=== PATIENT | female | born 1975 | race Caucasian/White ===

== ENCOUNTER 2024-02-19 05:13 | Inpatient (IN) | payer OTHER, SELFPAY ==
[2024-02-19] VITALS (9 sets, daily range): BP systolic 113–151; BP diastolic 69–99; BMI 34.6
--- NOTE | 2024-02-19 01:38 | ED.GENMED ---
History of Present Illness
General
Chief Complaint: Breathing Problem
Source: patient and ambulance crew
Time Seen by Provider: 02/19/24 01:31
History of Present Illness
History of Present Illness:
48-year-old female brought to the emergency room by ambulance for shortness of breath. Patient began having extreme shortness of breath over the past few hours. She has been having wheezing for some time that has not been improving with her
inhaler. Patient has a history of smoking but quit 1 year ago. She does not have a patient financial coordinator. No known fever. Patient received 2 DuoNeb's, 10 mg of Decadron en route by paramedics. No history of intubations.
Past History
Past History
ED Past Medical History: Asthma, Fibromyalgia, Psychiatric (Bipolar disorder, anxiety, depression ) and Other (Migraine headaches, neck pain, back pain )
ED Past Surgical History: Gynecological (Tubal ligation )
Social History
Tobacco: Smoker
Alcohol: None
Personal: Single
Living: alone
Phy Exam
Physical Exam
Physical Exam:
General: Awake, Alert, Oriented X3. Moderate respiratory distress
Vitals: Tachycardic, tachypneic
Head: Atraumatic
Eyes: Pupils equal, EOMI
Throat: Airway intact, no exudates
Neck: Trachea midline
Lungs: Diffuse expiratory wheezing
Heart: Tachycardic, regular rate, no murmurs
Abd: Soft, Nontender, No pulsatile mass
Neuro: Nonfocal
Skin: Warm, dry, no rash
Extremities: pulses equal b/l, no edema
Scores
Heart Failure Risk
Heart Failure Risk Score: Not Applicable
Course
Orders/Labs/Results
Orders:
Orders
02/19/24 01:36
Cardiac Monitoring- Treatment ONCE
0.9% Sodium Chloride 1000 ml [Nss] 1,000 ml IV BOLUS
Albuterol Sulfate [Ventolin Nebules] 7.5 mg INH R NOW STA
Magnesium Sulfate 2 Gram/50 ml [Magnesium Sulfate] 2 gram in 50 ml IV NOW
CR Chest Portable - 1 View Urgent
Comment:
Reason For Exam: sob
Reason Study Needs to be Portable: Patient Unstable
02/19/24 01:45
Basic Metabolic Panel Urgent
Complete Blood Count/With Diff Urgent
02/19/24 01:46
Terbutaline [Brethine] 250 mcg SC NOW STA
Abnormal Lab Results
02/19/24
01:45
WBC 15.0 H 10^3/uL
(4.8-10.8)
MCH 32.9 H pg
(27.0-31.0)
Abs Immat Gran (auto) 0.1 H 10^3/uL
(0-0.05)
Absolute Neuts (auto) 7.7 H 10^3/uL
(1.4-6.5)
Absolute Lymphs (auto) 5.3 H 10^3/uL
(1.2-3.4)
Absolute Monos (auto) 1.0 H 10^3/uL
(0.1-0.6)
Absolute Eos (auto) 0.8 H 10^3/uL
(0-0.7)
Immature Gran % 0.8 H %
(0-0.5)
BUN 20 H mg/dl
(7-17)
Glucose 135 H mg/dl
(70-99)
02/19/24 01:45
02/19/24 01:45
Vital Signs
Initial and Last Documented VS:
Initial Vital Signs
Temp Pulse Resp BP Pulse Ox
98.1 F 129 40 139/99 98
02/19/24 01:33 02/19/24 01:33 02/19/24 01:33 02/19/24 01:33 02/19/24 01:33
Last Documented Vital Signs
Temp Pulse Resp BP Pulse Ox
98.1 F 119 23 130/78 95
02/19/24 01:33 02/19/24 02:15 02/19/24 02:15 02/19/24 02:00 02/19/24 02:15
MDM/Problems Addressed
Differential Diagnosis Includes:
asthma exacerbtion, ptx, pneumonia, chf
MDM/Problems Addressed:
Patient presents with significant increased work of breathing, wheezing and decreased aeration. In addition to nebs given in the prehospital setting patient was treated with an hour-long albuterol treatment, subcu terbutaline and 2 g of magnesium.
Patient did begin to feel significant improvement. She had already received 10 mg of Decadron by paramedics. Though much better she continues to have expiratory wheezing on repeat evaluation.
Acute Exacerbation and/or Progression of Chronic Illness: Asthma
*Radiology
Radiology exam reviewed: preliminary read by ED provider (No acute abnormality by my personal review)
*Pulse Oximetry
Patient hypoxic: no
*Matchbook Maker Interpretation
Rate: tachycardiac
Rhythm: sinus tachycardia
*Critical Care Note
Total Time (30-74mins, 75-104mins- exclusive of procedures): 35 min
ED Attending Note
-
Portions of this chart may have been created with voice recognition software.� Occasional wrong word or��sound alike� substitutions may have occurred due to the inherent limitations of voice recognition software.
Discharge Plan
Departure
Patient Disposition: Admit
Date of Disposition: 02/19/24
Time of Disposition: 02:40
Admit to: Med/Surg
Presentation/result/management discussed w/ accepting MD/DO: Hospitalist
Discharge Problem:
Asthma exacerbation
Prescriptions:
No Action
Manter Carbonate
900 mg PO DAILY
Paxil Cr
50 mg PO DAILY
Klonopin
3 mg PO HS
Advil
PO DAILY
Benadryl
50 mg PO DAILY
Albuterol
2 puff inhalation BID
clonazepam 1 MG tablet
1 mg PO TID Qty: 42 0RF
quetiapine 100 MG tablet
100 mg PO HS Qty: 14 0RF
Referrals:
NONE,* [Family Provider] -
Interventions
Interventions:
*Risk Screen - Suicide Last Done: 02/19/24 02:03
*General Assessment Last Done: 02/19/24 02:02
*Neglect/Abuse Screening Last Done: 02/19/24 01:40
ED- Fall Risk Assessment Last Done: 02/19/24 02:05
*ED COVID-19 Vaccine History Last Done: 02/19/24 02:02
ED- Cardiac Assessment Last Done: 02/19/24 02:04
ED- Pulmonary Assessment Last Done: 02/19/24 02:05
Discharge Date and Time
Print Language: PERSIAN
[2024-02-19] MEDS: VENTOLIN NEBULES 7.5 MG INH (01:45)
[2024-02-19] MEDS: MAGNESIUM SULFATE 50 IV (01:46)
[2024-02-19 01:49] LABS: % Basophils 0.9 % (0-2); % Eosinophils 5.1 % (0-6); % Immature Granulocytes 0.8 % (0-0.5); % Monocytes 6.7 % (1.7-9.3); % Neutrophils 51.5 % (42.2-75.2); Absolute Basophils 0.1 10^3/uL (0-0.2); Absolute Eosinophils 0.8 10^3/uL (0-0.7); Absolute Immature Granulocytes 0.1 10^3/uL (0-0.05); Absolute Lymphocytes 5.3 10^3/uL (1.2-3.4); Absolute Neutrophils 7.7 10^3/uL (1.4-6.5); Hematocrit 42.1 % (37.0-47.0); Hemoglobin 15.1 g/dL (12.0-16.0); Mean Corp Hgb Conc. 35.9 g/dL (33.0-37.0); Mean Corpuscular Hgb 32.9 pg (27.0-31.0); Mean Corpuscular Volume 91.7 fL (81.0-99.0); Mean Platelet Volume 9.7 fL (7.4-10.4); Nucleated Red Blood Cells % 0 %; Platelet Count 340 10^3/uL (130-400); Red Blood Cell Count 4.59 10^6/uL (4.20-5.40); Red Cell Dist. Width 12.9 % (11.5-14.5)
[2024-02-19] MEDS: NSS 1000 IV (01:53)
[2024-02-19] MEDS: BRETHINE 250 MCG SC (01:57)
[2024-02-19 02:03] LABS: Blood Urea Nitrogen 20 mg/dl (7-17); Calcium 9.9 mg/dl (8.4-10.2); Carbon Dioxide 25 mmol/L (22-30); Chloride 102 mmol/L (98-107); Glucose 135 mg/dl (70-99); Sodium 140 mmol/L (135-145); eGFR > 60.00
--- NOTE | 2024-02-19 03:38 | HPS.HSE ---
Family Physician
-
Family Physician: NINFA Grande
Chief Complaint
-
SOB
History of Present Illness
Patient is a 48y F with PMH significant for fibromyalgia, asthma and bipolar disorder who presents to ED complaining of SOB. Patient states that she initially developed cough, chest tightness and SOB on Tuesday of this week. She has been using
her rescue inhaler regularly without significant improvement in her symptoms. She has a nebulizer machine at home but is out of albuterol vials. Patient denies any fevers / chills, N/V/D or other associated complaints.
Patient notes that she has had intermittent episodes over the past week - typically lasting about 90 minutes or so. She would have paroxysms of cough and felt improved after successfully expectorating whitish mucus.
This evening, patient developed very severe dyspnea and central chest tightness. She coughed but could not produce any sputum and her symptoms did not improve.
EMS was called and patient was brought to the ED for further evaluation and treatment.
At the time of my examination, patient states that she feels significantly improved from admission. She has received nebulizer therapy and IV magnesium here in the ED.
Patient notes that she had fairly significant / prolonged issues with asthma last month as well - but these symptoms did eventually resolve.
She does not take any daily asthma medications or any maintenance inhalers.
She is a prior smoker - having quit in 2021.
Medical History
Past Medical History
Past Medical History: Reports Other
Additional Past Medical History:
Fibromyalgia
Asthma
Bipolar Disorder
ADHD
Lee-Danlos
Past Surgical History: Reports Other
Additional Past Surgical History:
Hysterectomy
Social History
Tobacco: Former Smoker (Quit smoking in 2021. Approx 20 pack years total use.)
Alcohol: Occasional
Family History
Family History: Other (Uncle: Eosinophilic Asthma)
Allergies / Home Medications
Allergies reflects when Allergies were last updated in [employer].
Home Medications with original date entered in [employer]
Allergy/Medication List:
Allergies
Allergy/AdvReac Type Severity Reaction Status Date / Time
divalproex sodium Allergy Unknown Verified 02/19/24 02:26
erythromycin base Allergy Unknown Verified 02/19/24 02:26
lamotrigine Allergy Unknown Verified 02/19/24 02:26
verapamil Allergy Hives Verified 02/19/24 02:26
pollens Allergy sneezing,congestion,respiratory Uncoded 02/19/24 02:26
distress
Home Medications
Advil PO DAILY 10/04/08
Albuterol 2 puff inhalation BID 10/04/08
Benadryl 50 mg PO DAILY 10/04/08
Klonopin 3 mg PO HS 10/04/08
clonazepam 1 mg tablet 1 mg PO TID #42 tabs 05/31/10
Lamictal 1 tab PO DAILY 02/19/24
Seroquel 25 mg PO BID 02/19/24
Wellbutrin 1 tab PO DAILY 02/19/24
duloxetine 60 mg capsule,delayed release (Cymbalta) 120 mg PO DAILY 02/19/24
levocetirizine 5 mg tablet (Xyzal) 5 mg PO DAILY 02/19/24
quetiapine 400 mg tablet,extended release 24 hr (Seroquel XR) 400 mg PO HS 02/19/24
Review of Systems
-
History Source: Patient
A 12 point ROS was completed and negative except as noted: Yes
Constitutional: Reports Fatigue; Denies Fever or Chills
EENT: Denies Sore Throat
Respiratory: Reports Cough and Trouble Breathing; Denies Hemoptysis
Cardiac: Reports Chest Pain; Denies Diaphoresis, Palpitations or Syncope
Abdomen/GI: Denies Abdominal Pain, Nausea, Vomiting or Diarrhea
: Denies Dysuria or Flank Pain
Musculoskeletal: Denies Joint Pain or Edema
Neurological: Denies Dizzy or Headache
Psych: Denies Depression or Anxiety
Physical Exam
Vital Signs
Vital Signs
Temp Pulse Resp BP Pulse Ox
98.1 F 119 23 130/78 95
02/19/24 01:33 02/19/24 02:15 02/19/24 02:15 02/19/24 02:00 02/19/24 02:15
Physical Exam
General: Other (48y F in no acute distress.)
HEENT: Moist mucous membranes and PERRLA
Respiratory: Other (Diffuse inspiratory and expiratory wheezing. No rales / rhonchi.)
Cardiac: S1/S2 and Tachycardia; No Murmur
GI: Soft, Non Tender, Non Distended and Normal Bowel Sounds
Musculoskeletal: No Clubbing, No Cyanosis and No Edema
Neuro: AO x 3 and Nonfocal/grossly intact
Laboratory Results
-
02/19/24 01:45
02/19/24 01:45
Impression/Plan
-
A/P: Patient is a 48y F with PMH significant for asthma and fibromyalgia who presents to ED complaining of cough and SOB.
Asthma with Acute Exacerbation
- Admit for further evaluation and treatment.
- Continue IV steroids, nebs, O2 support, etc.
- Pulmonary evaluation
- Uncontrolled symptoms with two significant exacerbations in the past 2 months.
- Suspect that patient will benefit from maintenance medication / inhaler regimen at discharge.
- Follow for continued clinical improvement.
Bipolar Disorder
ADHD
Fibromyalgia
Insomnia
- Stable. Continue current home medication regimen.
- Some med doses need to be clarified / reconciled before they can be ordered here (Lamictal, Wellbutrin, etc).
Obesity due to excess calories
- Affects all aspects of care.
- Encourage healthy diet and increased activity with goal of weight loss.
DVT Prophylaxis: Lovenox
Code Status: Full
[2024-02-19] MEDS: DUONEB 3 ML INH ×5 (04:05→18:59)
[2024-02-19] MEDS: VALIUM INJECTION 2 MG IV (04:46)
--- NOTE | 2024-02-19 06:20 | PTCARENOTE ---
Patient arrived from the ED via stretcher. Patient pivoted onto bed. Very SOB with exertion. AAOx3, VSS. O2 sat 93% on 2L NC. Bedside commode placed next to bed due to SOB. Patient oriented to the room. Educated on medications and plan of care. Call
bernardo is within reach.
[2024-02-19 07:47] LABS: Hematocrit 36.6 % (37.0-47.0); Hemoglobin 13.4 g/dL (12.0-16.0); Mean Corp Hgb Conc. 36.6 g/dL (33.0-37.0); Mean Corpuscular Hgb 33.4 pg (27.0-31.0); Mean Corpuscular Volume 91.3 fL (81.0-99.0); Platelet Count 295 10^3/uL (130-400); Red Blood Cell Count 4.01 10^6/uL (4.20-5.40); Red Cell Dist. Width 12.9 % (11.5-14.5); White Blood Cell Count 10.6 10^3/uL (4.8-10.8)
[2024-02-19 08:03] LABS: Blood Urea Nitrogen 15 mg/dl (7-17); Calcium 9.1 mg/dl (8.4-10.2); Carbon Dioxide 20 mmol/L (22-30); Chloride 105 mmol/L (98-107); Estimated Creatinine Clearance 80 ml/min; Glucose 160 mg/dl (70-99); Potassium 3.9 mmol/L (3.5-5.1); Sodium 137 mmol/L (135-145); eGFR > 60.00
[2024-02-19] MEDS: SEROQUEL 25 MG PO ×2 (08:20→19:44)
[2024-02-19] MEDS: CYMBALTA DELAYED RELEASE 120 MG PO (08:20)
[2024-02-19] MEDS: KLONOPIN 1 MG PO ×3 (08:20→21:04)
[2024-02-19] MEDS: MUCINEX 1200 MG PO ×2 (08:20→19:44)
[2024-02-19] MEDS: DECADRON 4 MG IV ×2 (11:32→19:44)
--- NOTE | 2024-02-19 12:47 | CM ---
CM met with pt and her SO bedside
Pt resides alone in a 2nd floor apartment, no elevator
Full flight to apartment- SO stays with her often
Pt notes independence with her ADLs
Has a working nebulizer and rescue inhaler
PCP- Dilcia Rhodes
Rx- Callum
Pt is currently on 2L 02- not on oxygen at baseline
CM will follow pt for dc planning
Discharge Disposition- home, follow O2 needs
--- NOTE | 2024-02-19 13:02 | W.PN.UPDATE ---
Update Note
Progress Note Update
Nonbillable note
Lab/images/admission H&P reviewed
Patient seen briefly resting in bed and remains on 3L o2 through NC
maintain on steroids/neb therapy
wean off 02 as possible
--- NOTE | 2024-02-19 16:10 | CON.PUL ---
Consultation
Consultation Request
Date/Time Consultation Requested: 02-19-24
Date/Time Consultation Performed: 02-19-24
Requesting Provider: Hospitalist Lc
Performing Provider: Dr Ellis
Reason for Consultation: dyspnea
Medical History
-
Chief Complaint: dyspnea
History of Present Illness:
Mrs Donato Vasquez is a 48/W adm [birth year] with 6 d h/o dry cough, chest tightness and dyspnea, symptoms not improved in spite of alb HFA/nebs (only BDs at home).
H/o asthma since age 19, followed by PCP, never seen by pulm, no PFTs checked.
Worsening resp symptoms on DOA, brought to ER by EMS. At ER, given neb BDs and IV Mg with some improvement. First DH adm
Former Smoker (2 pp/wk for 18 y, quit 1 y ago)
Past Medical History
Past Medical History: Other (see A&P for PMH/PSH)
Social History
Tobacco: Former Smoker
Alcohol: Occasional
Drug: Marijuana (medical use)
Personal: Partner
Living: Alone
Family History
Family History: Reviewed & Not Pertinent
Allergies / Home Medications
Allergies
Allergy/AdvReac Type Severity Reaction Status Date / Time
divalproex sodium Allergy Unknown Verified 02/19/24 02:26
erythromycin base Allergy Unknown Verified 02/19/24 02:26
lamotrigine Allergy Unknown Verified 02/19/24 02:26
verapamil Allergy Hives Verified 02/19/24 02:26
pollens Allergy sneezing,congestion,respiratory Uncoded 02/19/24 02:26
distress
Home Medications
�Medication �Instructions �Recorded �Confirmed �Last Taken �Type
Advil PO DAILY 10/04/08 10/10/08 10/04/08 History
Albuterol 2 puff inhalation BID 10/04/08 10/10/08 10/10/08 08:00 History
2 puffs
Benadryl 50 mg PO DAILY 10/04/08 10/10/08 10/09/08 08:00 History
50 mg
Klonopin 3 mg PO HS 10/04/08 10/10/08 10/09/08 21:00 History
3 mg
clonazepam 1 mg tablet 1 mg PO TID #42 tabs 05/31/10 Unknown Rx
Lamictal 1 tab PO DAILY 02/19/24 Unknown History
Seroquel 25 mg PO BID 02/19/24 Unknown History
Wellbutrin 1 tab PO DAILY 02/19/24 Unknown History
duloxetine 60 mg capsule,delayed 120 mg PO DAILY 02/19/24 Unknown History
release (Cymbalta)
levocetirizine 5 mg tablet (Xyzal) 5 mg PO DAILY 02/19/24 Unknown History
quetiapine 400 mg tablet,extended 400 mg PO HS 02/19/24 Unknown History
release 24 hr (Seroquel XR)
Review of Systems
-
History Source: Patient
All other systems: Negative unless noted
Constitutional: Fatigue
Respiratory: Cough and Trouble Breathing
Neuro: Weakness
Vitals / Labs / Diagnostic Testing
Vital Signs
Temp Pulse Resp BP Pulse Ox
97.8 F 107 18 140/82 96
02/19/24 15:30 02/19/24 15:30 02/19/24 15:30 02/19/24 15:30 02/19/24 15:30
Lab Data
02/19/24 06:43
02/19/24 06:43
Diagnostic Testing:
Physical Exam
-
HEENT: Normocephalic, Moist Mucous Membranes and Thrush (n)
Cardiovascular: Regular Rhythm, Murmur, Peripheral Edema (n), Calf Tenderness (n) and JVD (n)
Respiratory: Wheeze, Rhonchi and Non-Labored Respirations
GI: Soft, Non Distended and Non Tender
Neurology: Awake, AO x 3 and No Motor Deficits
Skin: Warm
General: Respiratory Distress (trace)
Assessment
-
Assessment:
Mrs Donato Vasquez is a 48/W adm [birth year] with 6 d h/o dry cough, chest tightness and dyspnea, symptoms not improved in spite of alb HFA/nebs (only BDs at home). H/o asthma since age 19, followed by PCP, never seen by pulm, no PFTs checked. Worsening
resp symptoms on DOA, brought to ER by EMS. At ER, given neb BDs and IV Mg with some improvement. First DH adm
Impression:
Asthma exacerbation
Transient leukocytosis with trace eosinophilia
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
Fibromyalgia
Asthma
Bipolar Disorder
ADHD
Lee-Danlos
Hysterectomy
Former Smoker (2 pp/wk for 18 y, quit 1 y ago)
Obesity
Plan:
O2 protocol to keep POx>=94%
Asp precs
Acapella valve
AE asthma
Only on SABD at home, never seen by pulm, never adm for asthma exac
Adm CXR, no comparison films, portable, no infiltrates, pneumothorax, effusion
Continue dexam 4 mg IV q8 for now
Reevaluate dose and route of systemic CS on a daily basis
Continue Dns qid, alb nebs prn
Slow clinical improvement reported by patient
Procure dedicated pulm follow up after d/c
Observing off atbs
Environmental control, wt mgmt advised
D/w Mrs Vasquez
[2024-02-19] MEDS: LOVENOX 40 MG SC (17:35)
[2024-02-19] MEDS: TESSALON PERLES 200 MG PO ×2 (18:52→22:54)
[2024-02-19] MEDS: NON-FORMULARY ITEM 1 MG PO (21:04)
[2024-02-20] MEDS: DECADRON 4 MG IV ×3 (03:12→21:57)
[2024-02-20 03:21] VITALS: BP 139/78
[2024-02-20] MEDS: VENTOLIN NEBULES 2.5 MG INH (03:57)
[2024-02-20 05:40] LABS: Hematocrit 37.9 % (37.0-47.0); Hemoglobin 13.1 g/dL (12.0-16.0); Mean Corp Hgb Conc. 34.6 g/dL (33.0-37.0); Mean Corpuscular Hgb 33.2 pg (27.0-31.0); Mean Corpuscular Volume 96.2 fL (81.0-99.0); Platelet Count 289 10^3/uL (130-400); Red Blood Cell Count 3.94 10^6/uL (4.20-5.40); Red Cell Dist. Width 13.1 % (11.5-14.5); White Blood Cell Count 14.6 10^3/uL (4.8-10.8)
[2024-02-20 06:04] LABS: Blood Urea Nitrogen 13 mg/dl (7-17); Calcium 9.7 mg/dl (8.4-10.2); Carbon Dioxide 22 mmol/L (22-30); Chloride 106 mmol/L (98-107); Estimated Creatinine Clearance 80 ml/min; Glucose 116 mg/dl (70-99); Potassium 4.5 mmol/L (3.5-5.1); Sodium 139 mmol/L (135-145); eGFR > 60.00
[2024-02-20 07:05] VITALS: BP 107/76
[2024-02-20] MEDS: DUONEB 3 ML INH ×4 (07:13→20:39)
[2024-02-20] MEDS: CYMBALTA DELAYED RELEASE 120 MG PO (08:20)
[2024-02-20] MEDS: MUCINEX 1200 MG PO ×2 (08:21→21:55)
[2024-02-20] MEDS: KLONOPIN 1 MG PO ×3 (08:22→21:58)
[2024-02-20] MEDS: SEROQUEL 25 MG PO (08:22)
[2024-02-20 10:45] VITALS: BP 110/70
--- NOTE | 2024-02-20 12:38 | W.PN.HOSP.TC ---
Today's Communication/Plan
-
see A/P
Assessment / Plan
Assessment / Plan
48y F with PMH significant for fibromyalgia, asthma and bipolar disorder who presented to ED complaining of SOB and chest tightness.
She has been using her rescue inhaler regularly without significant improvement in her symptoms. She has a nebulizer machine at home but is out of albuterol vials.
A/P:
# Asthma with Acute Exacerbation
# Acute hypoxic respiratory insufficiency
Placed on 2L NC, wean as tolerated, pt not on home O2
Decrease IV Decadron from 4 IV Q8H to 4 IV Q12H
Cont Duonebs
Pulmonary on board
# Bipolar Disorder
# ADHD
# Fibromyalgia
# Insomnia
Stable. Continue current home medication regimen.
Some med doses need to be clarified / reconciled before they can be ordered here (Lamictal, Wellbutrin, etc).
# Obesity due to excess calories
BMI 34
Affects all aspects of care.
Encourage healthy diet and increased activity with goal of weight loss.
DVT Prophylaxis: Lovenox
Code Status: Full
Anticipated Discharge: 24 - 48 hours
Subjective/Interval History
-
Date of Service: February 20, 2024
Objective Data
-
Labs:
Laboratory Results
02/20/24
04:51
WBC 14.6 H
Hgb 13.1
Hct 37.9
Plt Count 289
Sodium 139
Potassium 4.5
Chloride 106
Carbon Dioxide 22
BUN 13
Creatinine 0.8
Glucose 116 H
Calcium 9.7
Vital Signs:
Vital Signs
Temp Pulse Resp BP Pulse Ox
36.8 C 91 16 110/70 99
02/20/24 10:45 02/20/24 11:07 02/20/24 11:07 02/20/24 10:45 02/20/24 11:07
I&O
02/19/24 02/20/24 02/21/24
06:59 06:59 06:59
Intake Total 1440 / 1440
Balance 1440 / 1440
Review of Systems
-
All other systems: Reviewed and negative
Physical Exam
-
General: Well Developed, Well Nourished, No Apparent Distress, Comfortable and Conversant (speak in full sentences )
HEENT: Normocephalic, Atraumatic, Nose Appears Normal, Ears Appear Normal and Oxygen (1.5L NC)
Respiratory: Clear to Auscultation and Non Labored Respirations; Negative Wheezes or Accessory Resp Muscle Use
Cardiac: Regular Rhythm and S1/S2
GI: Soft, Nontender, Nondistended and Normal Bowel Sounds
Skin: Warm and Dry
Neuro: Awake, Alert, Oriented, AO x 3 and Nonfocal/Grossly Intact
Psych: Calm and Intact Judgement/Insight
Data Reviewed
-
Diagnostic Radiology: Report Reviewed by me
Labs: Labs Reviewed by me
--- NOTE | 2024-02-20 13:10 | W.PN.PUL3 ---
Today's Communication / Plan
-
Wean down steroids as tolerated
DuoNebs
DC home on a maintenance inhaler LABA/ICS combo
Outpatient PFTs and asthma management
Assessment
-
Assessment:
Mrs Donato Vasquez is a 48/W adm [birth year]19 with 6 d h/o dry cough, chest tightness and dyspnea, symptoms not improved in spite of alb HFA/nebs (only BDs at home). H/o asthma since age 19, followed by PCP, never seen by pulm, no PFTs checked. Worsening
resp symptoms on DOA, brought to ER by EMS. At ER, given neb BDs and IV Mg with some improvement. First DH adm
Impression:
Asthma exacerbation (type II)
Transient leukocytosis with eosinophilia (absolute eos of 800 on 02/19/2024)
Conditions MANAGER OF APPLICATION DEVELOPMENT:
Fibromyalgia
Asthma
Bipolar Disorder
ADHD
Lee-Danlos
Hysterectomy
Former Smoker (2 pp/wk for 18 y, quit 1 y ago)
Obesity
Plan:
O2 protocol to keep POx>=94%
Asp precs
Acapella valve
AE asthma
Only on SABD at home, never seen by pulm, never adm for asthma exac
Adm CXR, no comparison films, portable, no infiltrates, pneumothorax, effusion
Continue dexam for now --> weaned down to 4mg IV q12hr from 4 mg IV q8 --> continue to wean as tolerated as she clinically improves
Re-evaluate dose and route of systemic CS on a daily basis
Continue Dns qid, alb nebs prn
She will need to be discharged home on a LABA/ICS combo maintenance inhaler - preferably Breyna 160mcg or an equivalent (i.e. Advair HFA vs Dulera)
Slow clinical improvement reported by patient
Procure dedicated pulm follow up after d/c
Observing off atbs
Environmental control, wt mgmt advised
I answered all the patient's questions to her satisfaction.
Pulmonary service will continue to follow along and I will ensure there is outpatient follow-up with me for full PFTs and for asthma management with action plan.
Total time spent today was 35 minutes for this encounter. Time includes reviewing laboratory test/imaging results, reviewing pertinent medical records, obtaining and reviewing medical history, performing an appropriate exam, ordering medications,
tests and procedures. Time also includes documentation of this encounter, coordinating patient care and communicating with other healthcare professionals. Total time does not include separately billed tests performed on this date of service.
Subjective Data
-
Date of Service:
Date of Service: February 20, 2024
Chief Complaint: Pulmonary Follow Up
Subjective:
Seen today at bedside. She feels much better currently. She is on room air breathing comfortably. No acute events reported from overnight. Denies chest pain, headache, fevers or chills.
Review of Systems
General: Other (Negative unless mentioned above)
Objective Data
Data Reviewed
Vital Signs / I&O / Oxygen:
Vital Signs
Temp Pulse Resp BP Pulse Ox
98.3 F 91 16 110/70 99
02/20/24 10:45 02/20/24 11:07 02/20/24 11:07 02/20/24 10:45 02/20/24 11:07
Intake and Output
02/19/24 02/20/24 02/21/24
06:59 06:59 06:59
Intake Total 1440 / 1440
Balance 1440 / 1440
SaO2 99
Nasal Cannula flow liters per 2
minute
Physical Exam
General: Respiratory Distress (negative) and Comfortable
HEENT: Normocephalic and Anicteric
Cardiovascular: S1-S2 and Peripheral Edema (negative)
Respiratory: Wheeze (negative), Crackles (Bibasilar), Rhonchi (negative) and Non-Labored Respirations
GI: Soft, Non Distended and Non Tender
Neurology: AO x 3 and Tremors (negative)
Skin: Warm and Dry
Labs/Micro/Reports
Lab Data
02/20/24 04:51
02/20/24 04:51
[2024-02-20 14:30] VITALS: BP 102/64
[2024-02-20] MEDS: LOVENOX 40 MG SC (17:12)
--- NOTE | 2024-02-20 17:19 | CM ---
I met with Donato to review discharge plan. She intends to return home; her S.O. often stays with her and is supportive. Donato uses a nebulizer, but will need her albuterol prescription renewed, as she has used her last vial.
Anticipate discharge soon; Donato will arrange transportation home at discharge. No needs anticipated.
PCP- Dilcia Rhodes
Rx- Callum
[2024-02-20 19:30] VITALS: BP 137/91
[2024-02-20] MEDS: NON-FORMULARY ITEM 400 MG PO (22:00)
[2024-02-20] MEDS: SEROQUEL PO (22:01)
[2024-02-20] MEDS: MYLICON 80 MG PO (22:34)
[2024-02-20 23:30] VITALS: BP 129/84
[2024-02-21 04:00] VITALS: BP 128/88
[2024-02-21] MEDS: VENTOLIN NEBULES 2.5 MG INH (04:32)
[2024-02-21 06:00] VITALS: BMI 34.1
[2024-02-21 06:34] LABS: Hematocrit 38.7 % (37.0-47.0); Hemoglobin 13.4 g/dL (12.0-16.0); Mean Corp Hgb Conc. 34.6 g/dL (33.0-37.0); Mean Corpuscular Hgb 33.2 pg (27.0-31.0); Mean Corpuscular Volume 95.8 fL (81.0-99.0); Platelet Count 310 10^3/uL (130-400); Red Blood Cell Count 4.04 10^6/uL (4.20-5.40)
[2024-02-21 07:08] LABS: Blood Urea Nitrogen 17 mg/dl (7-17); Calcium 9.7 mg/dl (8.4-10.2); Carbon Dioxide 23 mmol/L (22-30); Chloride 102 mmol/L (98-107); Estimated Creatinine Clearance 79 ml/min; Glucose 97 mg/dl (70-99); Potassium 4.1 mmol/L (3.5-5.1); Sodium 135 mmol/L (135-145); eGFR > 60.00
[2024-02-21] MEDS: DUONEB 3 ML INH ×2 (07:40→11:37)
[2024-02-21 07:58] VITALS: BP 124/86
--- NOTE | 2024-02-21 08:17 | W.PN.HOSP.TC ---
Today's Communication/Plan
-
Discharge planning today.
Assessment / Plan
Assessment / Plan
Physical exam:
General: Well Developed, Well Nourished and No Apparent Distress
HEENT: Normocephalic, Atraumatic and Moist Mucous Membranes
Respiratory: Clear to Auscultation; Negative Wheezes, Rales or Rhonchi
Cardiac: Regular Rhythm and S1/S2
GI: Soft, Nontender and Nondistended
Musculoskeletal: No Clubbing, No Cyanosis and No Edema
Neuro: Awake, Alert and Oriented
Psych: Calm
A/P:
48y F with PMH significant for fibromyalgia, asthma and bipolar disorder who presented to ED complaining of SOB and chest tightness.
She has been using her rescue inhaler regularly without significant improvement in her symptoms. She has a nebulizer machine at home but is out of albuterol vials.
A/P:
# Asthma with Acute Exacerbation
# Acute hypoxic respiratory insufficiency
Placed on 2L NC, wean as tolerated, pt not on home O2
Decrease IV Decadron from 4 IV Q8H to 4 IV Q12H. decrease to oral steroids today. Plan to discharge today. Case management to help with the medication recommended by Michel eldridge.
Cont Duonebs. Prescription sent home since she tells me that she run out of her nebulizer medication but she still has the inhalers.
Pulmonary on board
# Bipolar Disorder
# ADHD
# Fibromyalgia
# Insomnia
Stable. Continue current home medication regimen.
Some med doses need to be clarified / reconciled before they can be ordered here (Lamictal, Wellbutrin, etc).
# Obesity due to excess calories
BMI 34
Affects all aspects of care.
Encourage healthy diet and increased activity with goal of weight loss.
DVT Prophylaxis: Lovenox
Code Status: Full
Anticipated Discharge: Today
Subjective/Interval History
-
Date of Service: February 21, 2024
Patient feels better and back to her baseline today. She wants to go home
Objective Data
-
Labs:
Laboratory Results
02/21/24
05:25
WBC 12.0 H
Hgb 13.4
Hct 38.7
Plt Count 310
Sodium 135
Potassium 4.1
Chloride 102
Carbon Dioxide 23
BUN 17
Creatinine 0.8
Glucose 97
Calcium 9.7
Vital Signs:
Vital Signs
Temp Pulse Resp BP Pulse Ox
97.9 F 89 18 124/86 98
02/21/24 07:58 02/21/24 07:58 02/21/24 07:58 02/21/24 07:58 02/21/24 07:58
I&O
02/20/24 02/21/24 02/22/24
06:59 06:59 06:59
Intake Total 1440 / 1440 450 / 450
Balance 1440 / 1440 450 / 450
[2024-02-21] MEDS: CYMBALTA DELAYED RELEASE 120 MG PO (08:26)
[2024-02-21] MEDS: SEROQUEL 25 MG PO (08:26)
[2024-02-21] MEDS: KLONOPIN 1 MG PO (08:26)
[2024-02-21] MEDS: MUCINEX 1200 MG PO (08:26)
[2024-02-21] MEDS: FLUSH (NSS) 2 FLUSH IV (10:22)
[2024-02-21] MEDS: DECADRON 4 MG IV (10:22)
[2024-02-21] MEDS: MYLICON 80 MG PO (10:27)
[2024-02-21 11:26] VITALS: BP 125/81
--- NOTE | 2024-02-21 12:10 | W.PN.PUL3 ---
Today's Communication / Plan
-
Wean down steroids as tolerated --> start prednisone taper today
DuoNebs
DC home on a maintenance inhaler LABA/ICS combo, Breyna 160mcg or its equivalent
Outpatient PFTs and asthma management
Patient is being prepared for discharge home. Pulmonary service will now sign off. Please reconsult if there are any additional questions/concerns, or if patient's respiratory status deteriorates.
Assessment
-
Assessment:
Mrs Donato Vasquez is a 48/W adm - with 6 d h/o dry cough, chest tightness and dyspnea, symptoms not improved in spite of alb HFA/nebs (only BDs at home). H/o asthma since age 19, followed by PCP, never seen by pulm, no PFTs checked. Worsening
resp symptoms on DOA, brought to ER by EMS. At ER, given neb BDs and IV Mg with some improvement. First DH adm
Impression:
Asthma exacerbation (type II)
Transient leukocytosis with eosinophilia (absolute eos of 800 on 02/19/2024)
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
Fibromyalgia
Asthma
Bipolar Disorder
ADHD
Lee-Danlos
Hysterectomy
Former Smoker (2 pp/wk for 18 y, quit 1 y ago)
Obesity
Plan:
O2 protocol to keep POx>=94%
Asp precs
Acapella valve
AE asthma
Only on SABD at home, never seen by pulm, never adm for asthma exac
Adm CXR, no comparison films, portable, no infiltrates, pneumothorax, effusion
Continue systemic steroids --> transition from decadron to prednisone starting at 40mg and reduce by 10mg every 4th day until off.
Continue Dns qid, alb nebs prn
She will need to be discharged home on a LABA/ICS combo maintenance inhaler - preferably Breyna 160mcg or an equivalent (i.e. Advair HFA vs Dulera)
Slow clinical improvement reported by patient but today she is much better and eager to go home
Observing off atbs
Environmental control, wt mgmt advised
I answered all the patient's questions to her satisfaction.
Patient is being prepared for discharge home. I will ensure there is outpatient follow-up with me for full PFTs and for asthma management with action plan.
Pulmonary service will now sign off. Thank you for allowing us to be involved in the care of this patient. Please reconsult if there are any additional questions/concerns, or if patient's respiratory status deteriorates.
Total time spent today was 25 minutes for this encounter. Time includes reviewing laboratory test/imaging results, reviewing pertinent medical records, obtaining and reviewing medical history, performing an appropriate exam, ordering medications,
tests and procedures. Time also includes documentation of this encounter, coordinating patient care and communicating with other healthcare professionals. Total time does not include separately billed tests performed on this date of service.
Subjective Data
-
Date of Service:
Date of Service: February 21, 2024
Chief Complaint: Pulmonary Follow Up
Subjective:
Patient seen and evaluated at bedside. No acute support overnight. She is eager to go home. She feels back to her normal self, denies any chest pain, headache, abdominal pain, fevers or chills.
Review of Systems
General: Other (Negative unless mentioned above)
Objective Data
Data Reviewed
Vital Signs / I&O / Oxygen:
Vital Signs
Temp Pulse Resp BP Pulse Ox
98.1 F 85 16 125/81 98
02/21/24 11:26 02/21/24 11:41 02/21/24 11:41 02/21/24 11:26 02/21/24 11:41
Intake and Output
02/20/24 02/21/24 02/22/24
06:59 06:59 06:59
Intake Total 1440 / 1440 450 / 450
Balance 1440 / 1440 450 / 450
SaO2 98
Nasal Cannula flow liters per 2
minute
Physical Exam
General: Respiratory Distress (negative) and Comfortable
HEENT: Normocephalic and Anicteric
Cardiovascular: S1-S2 and Peripheral Edema (negative)
Respiratory: Wheeze (negative), Crackles (Bibasilar), Rhonchi (negative) and Non-Labored Respirations
GI: Soft, Non Distended and Non Tender
Neurology: AO x 3 and Tremors (negative)
Skin: Warm and Dry
Labs/Micro/Reports
Lab Data
02/21/24 05:25
02/21/24 05:25
--- NOTE | 2024-02-21 12:18 | W.DCSUMMARY ---
Discharge Summary
Discharge Data
Date of Admission: 02/19/24
Date of Discharge: 02/21/24
-
Pending Results: No
Hospital Course
Patient 48 years old female history of asthma came in with shortness of breath and cough. Patient was found to be in asthma exacerbation. She was treated with IV steroids and bronchodilators. Patient slowly improved. She did not require any
antibiotics. Pulmonary consulted. We were able to switch her steroids to oral. Pulmonary recommended maintenance beta agonist and steroid inhalers and discussed with patient at length. Outpatient PFTs. Otherwise patient is hemodynamically stable
and breathing back to close her baseline and she is eager to go home today. We were able to wean her off oxygen. We encouraged her to follow-up with pulmonary and PCP as outpatient. She is going to be discharged in stable condition today.
Discharge duration: 34 minutes
Discharge Plan
-
Patient Disposition: Home (Routine Discharge)
Discharge Diagnosis/Procedures: Asthma exacerbation.
Fibromyalgia
Bipolar Disorder
Lee-Danlos
Diet: Low Cholesterol
Activity: As tolerated
Driving Restrictions: As prior to admission
Blood Work: Please discontinue CBC, BMP within 1 week
Referrals:
Eric Hammer MD [Active] - in two to three weeks
Dilcia Rhodes PA [Family Provider] - in less than 1 week
Prescriptions:
New
ipratropium-albuterol 0.5 mg-3 mg(2.5 mg base)/3 mL Solution For Nebulization
3 ml inhalation R QID Qty: 14 0RF
prednisone 10 mg Tablet
See Rx Instructions .ROUTE .COMPLEX Qty: 30 0RF
Rx Instructions:
Take By Mouth:
40 mg daily x3 days, 30 mg daily x3 days,
20 mg daily x3 days, 10 mg daily x3 days.
budesonide-formoterol [Breyna] 160-4.5 mcg/actuation HFA aerosol inhaler
2 puff inhalation BID Qty: 10.2 0RF
Continued
Klonopin
3 mg PO HS
Benadryl
50 mg PO DAILY
Albuterol
2 puff inhalation BID
clonazepam 1 MG tablet
1 mg PO TID Qty: 42 0RF
duloxetine [Cymbalta] 60 mg Capsule,Delayed Release(Dr/Ec)
120 mg PO DAILY
quetiapine [Seroquel XR] 400 mg Tablet Extended Release 24 Hr
400 mg PO HS
levocetirizine [Xyzal] 5 mg Tablet
5 mg PO DAILY
Lamictal
1 tab PO DAILY
Seroquel
25 mg PO BID
Wellbutrin
1 tab PO DAILY
Discontinued
Advil
PO DAILY
Discharge Orders:
Discharge Patient (As Directed); Ordered 02/21/24
Ordered By: Ac Malik
Discharge Date and Time
Discharge Date/Time: 02/21/24 14:45
Print Language: SYRIAC
--- NOTE | 2024-02-21 12:55 | CM ---
Donato was sleeping at time of my visit. Attempted to ortiz Breyna without success in [employer]. Call to [facility] and per pharmacist, Symbicort was already filled and ready for supervisor opening and picking. Symbicort is the same as Breyna. Dr. Malik notified of
same and advised either is fine.
No cost to patient for medication.
Plan: Discharge home with no needs.
PCP: Dilcia Rhodes
Pharmacy: [facility]
== END 2024-02-21 14:45 | disposition home or self-care (01) | DRG 202 ==
LOC: 4 EAST ACU 05:13
PROVIDERS: Hospitalist; ADMITTING PHYSICIAN Hospitalist; ATTENDING PHYSICIAN Hospitalist; CONSULT PHYSICIAN Internal Medicine Pulmonary Disease; EMERGENCY PHYSICIAN Emergency Medicine; FAMILY PHYSICIAN Physician Assistant
DX: J45.901 Unspecified asthma with (acute) exacerbation (principal); Q79.60 Ehlers-Danlos syndrome, unspecified; F17.200 Nicotine dependence, unspecified, uncomplicated; M79.7 Fibromyalgia; F31.9 Bipolar disorder, unspecified; R09.02 Hypoxemia; R06.89 Other abnormalities of breathing; F90.9 Attention-deficit hyperactivity disorder, unspecified type; E66.09 Other obesity due to excess calories; Z68.34 Body mass index [BMI] 34.0-34.9, adult
CPT/HCPCS: 71045; 80048; 85025; 85027; 93005; 94640; 96365; 96372; 99291

== ENCOUNTER 2025-04-14 02:06 | Inpatient (IN) | payer OTHER, SELFPAY ==
[2025-04-13 21:40] VITALS: BP 124/98; BMI 32.7
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
[2025-04-13 21:56] LABS: Hematocrit 41.3 % (37.0-47.0); Hemoglobin 15.0 g/dL (12.0-16.0); Mean Corp Hgb Conc. 36.3 g/dL (33.0-37.0); Mean Corpuscular Volume 91.6 fL (81.0-99.0); Nucleated Red Blood Cells % 0 %; Platelet Count 280 10^3/uL (130-400); Red Cell Dist. Width 12.2 % (11.5-14.5)
[2025-04-13 22:00] VITALS: BP 122/82
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
[2025-04-13 22:05] LABS: APTT 28.2 Sec (23.4-35.0)
[2025-04-13 22:13] LABS: ALT (SGPT) 27 U/L (0-35); AST (SGOT) 22 U/L (14-36); Albumin 5.0 g/dl (3.5-5.0); Alkaline Phosphatase 79 U/L (38-126); Blood Urea Nitrogen 16 mg/dl (7-17); Calcium 9.8 mg/dl (8.4-10.2); Carbon Dioxide 16 mmol/L (22-30); Chloride 108 mmol/L (98-107); Estimated Creatinine Clearance 68 ml/min; Glucose 135 mg/dl (70-99); Potassium 3.5 mmol/L (3.5-5.1); Sodium 138 mmol/L (135-145); Total Protein 8.1 g/dl (6.3-8.2); eGFR > 60.00
[2025-04-13 22:32] LABS: Acetaminophen < 10 ug/ml (10-30); Salicylate < 1.0 mg/dl (2.0-20.0)
[2025-04-13] MEDS: MAGNESIUM SULFATE 50 IV (22:39)
[2025-04-13] MEDS: NSS 2000 IV (22:39)
[2025-04-13 22:44] VITALS: BP 109/70
[2025-04-13] MEDS: KCL 270 MEQ IV (22:53)
[2025-04-13] MEDS: CALCIUM GLUCONATE 100 IV (22:55)
--- NOTE | 2025-04-13 22:59 | EDRN ---
Crisis is at bedside talking with patient.
[2025-04-13 23:00] VITALS: BP 118/81
[2025-04-13 23:18] LABS: Magnesium 2.0 mg/dl (1.6-2.3)
[2025-04-13 23:30] VITALS: BP 126/77
[2025-04-14] VITALS (31 sets, daily range): BP systolic 90–160; BP diastolic 58–104; BMI 33.1
[2025-04-14 00:28] LABS: ALT (SGPT) 24 U/L (0-35); AST (SGOT) 22 U/L (14-36); Acetaminophen < 10 ug/ml (10-30); Albumin 4.3 g/dl (3.5-5.0); Alkaline Phosphatase 63 U/L (38-126); Blood Urea Nitrogen 15 mg/dl (7-17); Calcium 9.7 mg/dl (8.4-10.2); Carbon Dioxide 16 mmol/L (22-30); Chloride 116 mmol/L (98-107); Estimated Creatinine Clearance 77 ml/min; Glucose 106 mg/dl (70-99); Magnesium 2.8 mg/dl (1.6-2.3); Potassium 4.0 mmol/L (3.5-5.1); Salicylate < 1.0 mg/dl (2.0-20.0); Sodium 142 mmol/L (135-145); Total Protein 7.2 g/dl (6.3-8.2); eGFR > 60.00
--- NOTE | 2025-04-14 00:57 | EDRN ---
Telepsych doctor attempted to speak with the patient, patient too sedated, attempted to wake her up, patient kept falling asleep, Dr. Pozo and crisis aware.
[2025-04-14 01:10] LABS: Glucose - Point of Care 131 mg/dl (70-99)
[2025-04-14] MEDS: NSS 1000 IV (01:11)
--- NOTE | 2025-04-14 01:15 | EDRN ---
Patient remains tachycardic and blood pressure slightly lower, fluids ordered and hung
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
--- NOTE | 2025-04-14 02:15 | PTCARENOTE ---
Patient received from ED, drowsy but arousable, oriented x3. Intermittently agitated with care. sinus tachycardia on monitor, afebrile, blood pressure as documented. Palpable pulses, no edema noted. Lungs clear, pulse ox 100%. Abdomen round
obese. Temp sensing fugn draining clear yellow urine. #16 g in RAC with K rider and IVF infusing #16 g in LAC. #20 g in left wrist flushed and patent. Generalized scabs noted on bilateral lower legs blood underneath finger nails. CHG bath
given. biological technical officer at bedside
--- NOTE | 2025-04-14 02:23 | EDRN ---
Fahad Vasquez (brother): [phone]
[2025-04-14 02:47] LABS: Glucose - Point of Care 121 mg/dl (70-99)
[2025-04-14] MEDS: LR 1000 IV ×4 (02:55→23:12)
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
[2025-04-14 05:50] LABS: Hematocrit 35.6 % (37.0-47.0); Hemoglobin 12.4 g/dL (12.0-16.0); Mean Corp Hgb Conc. 34.8 g/dL (33.0-37.0); Mean Corpuscular Volume 96.0 fL (81.0-99.0); Platelet Count 240 10^3/uL (130-400); Red Cell Dist. Width 12.6 % (11.5-14.5)
[2025-04-14 06:01] LABS: ALT (SGPT) 21 U/L (0-35); AST (SGOT) 19 U/L (14-36); Albumin 4.0 g/dl (3.5-5.0); Alkaline Phosphatase 55 U/L (38-126); Blood Urea Nitrogen 12 mg/dl (7-17); Calcium 9.2 mg/dl (8.4-10.2); Carbon Dioxide 20 mmol/L (22-30); Chloride 118 mmol/L (98-107); Estimated Creatinine Clearance 88 ml/min; Glucose 116 mg/dl (70-99); Magnesium 2.5 mg/dl (1.6-2.3); Potassium 4.3 mmol/L (3.5-5.1); Sodium 145 mmol/L (135-145); Total Protein 6.7 g/dl (6.3-8.2); eGFR > 60.00
--- NOTE | 2025-04-14 06:59 | CON.INTV ---
Consultation
Consultation Request
Date/Time Consultation Requested: 04/14
Date/Time Consultation Performed: 04/14
Reason for Consultation: Critical care
Medical History
-
History of Present Illness:
History primarily obtained from the chart as patient is currently somnolent, snoring. 49-year-old female with history of bipolar disorder, asthma, fibromyalgia who was brought to [facility] by ambulance. Patient states she ingested 4600 mg
of ibuprofen, 25 to 30 tablets of 400 mg contacted and extended release within a 2-hour period around 9:45 PM. Patient reported dizziness, articulating words. Apparently she posted online that she took the overdose prompting friends to contact
authorities. Upon arrival to [facility], afebrile, pulse 140, breathing at 18, blood pressure 120/98, 97%. Toxicology was contacted. Tox screen positive for TCA, benzo, marijuana. IV fluids, electrolyte abnormalities, possibly
bicarbonate depending on clinical course was recommended. Patient was admitted to ICU for further management. Of note salicylate level at 2355 normal
Presently patient is somnolent, heart rate 110s to 140s, otherwise hemodynamically stable. Urine output adequate
EKG sinus tachycardia [address] and T wave abnormalities. There is Q-wave in 3 per my review
.
PMH: History of asthma, last hospitalized February 2020 for, eosinophilia, fibromyalgia, bipolar disorder, ADHD, history of Lee-Danlos, hysterectomy.
Past Medical History
Past Medical History: None (See above)
Past Surgical History: None (See above)
Social History
Tobacco: Former Smoker
Alcohol: Occasional
Drug: Marijuana (Medical use per records)
Living: With Family ( partner per records)
Family History
Family History: Unable to Obtain
Allergies / Home Medications
Allergies
Allergy/AdvReac Type Severity Reaction Status Date / Time
divalproex sodium Allergy Unknown Verified 04/13/25 21:47
erythromycin base Allergy Unknown Verified 04/13/25 21:47
lamotrigine Allergy Unknown Verified 04/13/25 21:47
verapamil Allergy Hives Verified 04/13/25 21:47
pollens Allergy sneezing,congestion,respiratory Uncoded 04/13/25 21:47
distress
Home Medications
�Medication �Instructions �Recorded �Confirmed �Last Taken �Type
Albuterol 2 puff inhalation BID 10/04/08 04/13/25 10/10/08 08:00 History
2 puffs
Benadryl 50 mg PO PRN PRN allergies 10/04/08 04/13/25 10/09/08 08:00 History
50 mg
Klonopin 3 mg PO PRN PRN anxiety 10/04/08 04/13/25 10/09/08 21:00 History
3 mg
clonazepam 1 mg tablet 1 mg PO TID #42 tabs 05/31/10 04/13/25 Unknown Rx
Lamictal 150 mg PO DAILY 02/19/24 04/13/25 Unknown History
Wellbutrin 1 tab PO DAILY 02/19/24 04/13/25 Unknown History
duloxetine 60 mg capsule,delayed 120 mg PO DAILY 02/19/24 04/13/25 Unknown History
release (Cymbalta)
levocetirizine 5 mg tablet (Xyzal) 5 mg PO DAILY 02/19/24 04/13/25 Unknown History
quetiapine 400 mg tablet,extended 400 mg PO HS 02/19/24 04/13/25 Unknown History
release 24 hr (Seroquel XR)
budesonide-formoterol HFA 160 2 puff inhalation BID #10.2 grams 02/21/24 04/13/25 Unknown Rx
mcg-4.5 mcg/actuation aerosol
inhaler (Breyna)
ipratropium 0.5 mg-albuterol 3 mg 3 ml inhalation R QID PRN sob 04/13/25 04/13/25 Unknown History
(2.5 mg base)/3 mL nebulization
soln
Review of Systems
-
Unable to Obtain full review of systems at this time due to: Acuity
Vitals / Labs / Diagnostic Testing
Vital Signs
Temp Pulse Resp BP Pulse Ox
97.6 F 103 15 139/101 100
04/14/25 03:26 04/14/25 05:30 04/14/25 05:30 04/14/25 05:00 04/14/25 05:30
Lab Data
04/14/25 05:18
04/14/25 05:18
Laboratory Results
04/13/25
21:45
APTT 28.2
Diagnostic Testing:
Physical Exam
-
HEENT: Normocephalic and Anicteric (Mild erythematous conjunctiva)
Cardiovascular: S1/S2, Regular Rhythm (Tachycardic), Murmur (n), Rub (n) and Peripheral Edema (n)
Respiratory: Wheeze (n), Rales (n), Rhonchi (few) and Other (Sleeping, snoring, somnolent with occasional cough)
GI: Soft and Non Distended
Neurology: No Motor Deficits (Spontaneously moves extremities when arousable. Nods but does not answer questions), Other (Lethargic, somnolent) and Other (Pupils equal, sluggish)
Skin: Other (No rash)
General: Comfortable
Assessment
-
49-year-old female with history of fibromyalgia, asthma, bipolar disorder who presents with intentional overdose with 4600 mg of ibuprofen (<100mg/kg), and 25 to 30 tablets of quetiapine extended release. Poison control was contacted, IV fluids,
electrolyte abnormalities were addressed. Patient mated to ICU for further management
Intentional overdose
4600 mg ibuprofen, 25 to 30 tablets of quetiapine extended release
Approximately 9:45 PM on 04/13
Sinus tachycardia, prolonged QT
Mild hyperglycemia
Conditions present prior to admission
History of asthma
Peripheral eosinophilia
Fibromyalgia
Bipolar disorder
History of ADHD
Less than 63-[id number] history of smoking, quit 2022 per records
Hysterectomy
History of Lee-Danlos syndrome, details unclear
Per records
Former smoker
Plan/recommendations
At this time, patient remains critically ill but stable
Tachycardia seems improved
Presently somnolent but arousable
Negative fluid balance noted. Macias catheter in place
Patient receiving LR at 150 cc/h
Salicylate level acetaminophen level negative
Tox screen positive for TCA/benzo/marijuana
Moving forward
Continue with supportive care
IV fluids for now, follow electrolytes
Follow neurological status
In general, minimal toxicity from ibuprofen overdose at these levels (less than 100 mg/kg)
More concerning is the quetiapine overdose which can exacerbate anticholinergic effects
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
('Red as a beat, dry as of bone, hot as a hair, blind as a bat, mad has a hatter')
Repeat EKG this morning
Follow QTc
Eventual psychiatry evaluation when able
DVT prophylaxis: Mechanical
GI prophylaxis: Will add Protonix
Reviewed with critical care nursing
TCCT 33 min
--- NOTE | 2025-04-14 07:32 | PTCARENOTE ---
recd pt 1:1 maintained by RN, lauren wrist restraints on for safety, sonorous unless disturbed. IV fluids continue, monitor noted NSR/ST with stable VS. Thermister fung in place. Status changed to confidential in computer at this time pending
further discussion this am.
--- NOTE | 2025-04-14 08:59 | PTCARENOTE ---
seen by Dr. Gaines, somnolent, arouses to noxious stimuli, HOB raised. Some upper airway noise but no resp distress, sonorous. portable CXR obtained and pt repositioned, opened eyes briefly but sleeping unless disturbed. 1:1 continuing with
backup [address]
--- NOTE | 2025-04-14 09:34 | PTCARENOTE ---
Resting, IV sites reassessed, flushed, opened eyes, restlessly pulling at blankets, c/o 'cold' warm blankets applied.
[2025-04-14] MEDS: KLONOPIN PO ×3 (09:54→23:14)
--- NOTE | 2025-04-14 11:19 | W.PN.HOSP.TC ---
Today's Communication/Plan
-
See plan
Assessment / Plan
Assessment / Plan
Physical exam:
General: Acutely ill
HEENT: Pupils equal round and reactive to light accommodation but sluggish and some erythema injection in conjunctiva. Normocephalic, Atraumatic and Moist Mucous Membranes
Respiratory: Relatively clear to Auscultation but few rhonchi; Negative Wheezes, Rales
Cardiac: Regular Rhythm and S1/S2
GI: Soft, Nontender and Nondistended. Obese
Musculoskeletal: No Clubbing, No Cyanosis and No Edema
Neuro: Lethargic, does respond to verbal stimuli, moves spontaneously all 4 extremities
A/P:
Intentional Overdose
Acute TME secondary to the ingestion of ibuprofen, extended release quetiapine.
- Admit to ICU for further evaluation and treatment.
- ED spoke with Toxicology who advised IVF, electrolyte monitoring and following for QT prolongation, neuroleptic malignant syndrome, etc.
- Patient lethargic since arrival here with expected peak in symptoms more than 6 hours from ingestion (? longer given XR formulation).
- Continue IVF support +/- Levophed if necessary for hypotension.
- Follow lytes and replace if needed. Keep K and Mg at upper range of normal.
- Monitor for adequate airway / usual supportive care as needed.
- Follow for changes in neurologic status, development of seizure activity, etc.
- Follow for fever, rigidity, etc. BZDs +/- dantrolene as needed for NMS symptoms.
- Line Service Attendant evaluation.
- Psychiatry evaluation.
- Patient is currently 302 status and in police custody.
- Discussed with attending RN
Asthma without Acute Exacerbation
- Stable. Monitor airway as noted above.
- No wheezing or dyspnea noted at present.
Bipolar Disorder
Fibromyalgia
- Continue clonazepam dose - holding for sedation if needed.
- Hold all other psychotropic medications acutely / pending further input from Psychiatry.
DVT Prophylaxis: SCDs
Code Status: Full
Total Critical Care Time___35__ minutes. I was immediately available to the patient and staff. I personally examined, reviewed labs, diagnostic images/reports, interpretations, treatment plans, discussed patient care with other providers and
family or caregivers (if patient is unable to make decisions), entered orders as appropriate and documented the medical record.
Anticipated Discharge: 24 - 48 hours
Subjective/Interval History
-
Date of Service: April 14, 2025
Patient remains encephalopathic. Afebrile
Objective Data
-
Labs:
Laboratory Results
04/13/25 04/14/25
23:55 05:18
WBC 8.8
Hgb 12.4
Hct 35.6 L
Plt Count 240
Sodium 142 145
Potassium 4.0 4.3
Chloride 116 H 118 H
Carbon Dioxide 16 L 20 L
BUN 15 12
Creatinine 0.8 0.7
Glucose 106 H 116 H
Calcium 9.7 9.2
Total Bilirubin 0.7 0.6
AST 22 19
ALT 24 21
Alkaline Phosphatase 63 55
Vital Signs:
Vital Signs
Temp Pulse Resp BP Pulse Ox
97.2 F 93 17 117/71 97
04/14/25 11:12 04/14/25 11:00 04/14/25 11:00 04/14/25 11:00 04/14/25 11:00
I&O
04/13/25 04/14/25 04/15/25
06:59 06:59 06:59
Intake Total 600 / 750 750 / 750
Output Total 2400 / 2400 1105 / 1105
Balance -1800 / -1650 -355 / -355
--- NOTE | 2025-04-14 12:22 | PTCARENOTE ---
1:1 sitter bedside, security here briefly as well until relieved by police communications dispatcher. Macias care, pt tolerated, does rest/sleep quietly when undisturbed. VS noted, urine output good.
--- NOTE | 2025-04-14 13:26 | CM ---
CM reviewed chart, pt sleeping and in police custody and 302, also on 1:1 observation. Attempted to reach her mother but was unable to leave a message.
Pt lives in apartment, independent in ADLs, personal care and ambulation at baseline.
PCP and pharmacy unknown at this time.
CM will continue to follow for discharge planning needs.
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
--- NOTE | 2025-04-14 14:41 | PTCARENOTE ---
turned, underwear applied around fung for comfort. CHG bath given, tolerated, awakened more than previously this shift, stated 'Careful, I have fibromyalgia' and 'be gentle' and did slap at this procedure writer's hand while gently rolling pt then
immediately apologized. sonorous again after bath completed. No other change, VS stable, urine output good.
--- NOTE | 2025-04-14 17:56 | PTCARENOTE ---
turned and repositioned, awakened briefly, restless only when disturbed, 'I'm cold and I can't sleep' then settled immediately back to sonorous, sleeping when observed. Pts brother Fahad phoned, updated by policeman, he states he is the next of
kin, unable to confirm with patient.
--- NOTE | 2025-04-14 21:00 | PTCARENOTE ---
Pt restrained w/ 1:[address] Pt awakens to verbal stimuli and answers appropriately to questions. Pupils equal and reactive to light. NSR on tele monitor. Pt on RA satting at 94% pulse ox. On auscultation pt lungs sound clear. Macias
cath in place draining clear yellow urine. 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
[2025-04-15] VITALS (22 sets, daily range): BP systolic 108–169; BP diastolic 62–96; BMI 33.0
[2025-04-15] MEDS: LR 1000 IV (05:33)
[2025-04-15 05:56] LABS: Hematocrit 33.8 % (37.0-47.0); Hemoglobin 11.7 g/dL (12.0-16.0); Mean Corp Hgb Conc. 34.6 g/dL (33.0-37.0); Mean Corpuscular Volume 97.1 fL (81.0-99.0); Nucleated Red Blood Cells % 0 %; Platelet Count 224 10^3/uL (130-400); Red Cell Dist. Width 13.2 % (11.5-14.5)
[2025-04-15 07:09] LABS: Blood Urea Nitrogen 12 mg/dl (7-17); Calcium 8.9 mg/dl (8.4-10.2); Carbon Dioxide 14 mmol/L (22-30); Chloride 120 mmol/L (98-107); Estimated Creatinine Clearance 44 ml/min; Glucose 72 mg/dl (70-99); Potassium 4.1 mmol/L (3.5-5.1); Sodium 144 mmol/L (135-145); eGFR 45.83
--- NOTE | 2025-04-15 07:29 | PTCARENOTE ---
Pt continues to sleep still arousable to verbal stimuli.
--- NOTE | 2025-04-15 07:30 | PTCARENOTE ---
Pt was rec'd this am from night RN, drowsy but easily arousable to verbal and tactile stim. Pt is oriented to name, , and place, not able to easily state current month, begins rambling on with scattered thoughts. Pt states 'I have memory issues.'
Pt has been cooperative with care, tearful at times, asking for an update on her significant other. Emotional support ongoing. No information provided to patient other than what is pertinent to her care. Safe environment maintained. affirmative action officer
and 1:1 sitter at bedside. Plan discussed with care team, orders rec'd and carried out.
[2025-04-15] MEDS: KLONOPIN 1 MG PO ×3 (08:19→21:14)
--- NOTE | 2025-04-15 08:19 | W.PN.INTV ---
Today's Communication / Plan
Recommendations
- Switch IV fluids to sterile water with 3 A of sodium bicarbonate at 100 mL/h
- Labs in a.m., monitor urine output closely
- Follow-up EKG
- Continue telemetry, transfer to IMU
- Once patient transferred out of ICU, senior c web developer service will sign off, please call as needed
Assessment
-
49-year-old female with history of fibromyalgia, asthma, bipolar disorder who presents with intentional overdose with 4600 mg of ibuprofen (<100mg/kg), and 25 to 30 tablets of quetiapine extended release. Poison control was contacted, IV fluids,
electrolyte abnormalities were addressed. Patient mated to ICU for further management
Conditions present prior to admission
History of asthma
Peripheral eosinophilia
Fibromyalgia
Bipolar disorder
History of ADHD
Less than 33-[id number] history of smoking, quit 2022 per records
Hysterectomy
History of Lee-Danlos syndrome, details unclear
Per records
Former smoker
Assessment and plan
#1. Intentional multidrug overdose, ibuprofen and Seroquel
- 4600 mg ibuprofen, 25 to 30 tablets of quetiapine extended release, approximately 9:45 PM on 04/13
- Awake, alert, protecting her airway as well.
- Initiate Protonix 40 mg p.o. twice daily for next few days considering large doses of NSAID ingestion
- 1:1, suicide watch
#2. KENYETTA with developing metabolic acidosis.
- DC Ringer lactate, start sterile water with 3amps of Sodium bicarb at 100 ml/h an hour, check VBG
- Monitor urine output closely, at risk of developing ATN particularly with ibuprofen overdose
- Nonoliguric, urine output 2.6 L over last 24 hours
- VBG 7.35/27
#3. Sinus tachycardia, prolonged QT
- Check follow-up EKG this morning, QTc 446
- Potassium 4.1, magnesium above 2, at target
-Continue telemetry
#4. h/o Asthma
- No wheezing currently
- Add as needed albuterol
Patient stable to transfer out of ICU. Will transition to IMU for close monitoring.
DVT GI prophylaxis. Start subcu heparin and add Protonix 40 mg twice daily
Critical Care time 48 mins -- The patient is admitted for acute critical illness for the treatment of vital organ failure and/or prevention of further life-threatening conditions. Total care includes time spent in review of history, physical exam,
medications, hemodynamic/ventilator parameters, laboratory data, imaging and discussion with house staff, pharmacy, respiratory therapy, sales support manager, and nursing.
Subjective Dataa
Subjective Data
Date of Service:
Date of Service: April 15, 2025
Subjective:
Patient comfortably sitting in bed in no acute distress. She is awake alert protecting her airway as well.
Review of Systems
Genitourinary: Other (All 14 systems reviewed and negative except as stated above in the history of present illness.)
Objective Data
Data Reviewed
Vital Signs / I&O / Oxygen:
Vital Signs
Temp Pulse Resp BP Pulse Ox
98.2 F 95 19 123/69 94
04/15/25 03:28 04/15/25 06:45 04/15/25 06:45 04/15/25 06:00 04/15/25 06:45
Intake and Output
04/14/25 04/15/25 04/16/25
06:59 06:59 06:59
Intake Total 600 / 750 3450 / 3720 270 / 270
Output Total 2400 / 2400 2720 / 2920 200 / 200
Balance -1800 / -1650 730 / 800 70 / 70
SaO2 94
Physical Exam
General: Comfortable
HEENT: Normocephalic
Cardiovascular: S1-S2
Respiratory: Clear and Non-Labored Respirations
GI: Soft and Non Distended
Neurology: Awake
Skin: Warm
Labs/Micro/Reports
Lab Data
04/15/25 05:30
04/15/25 06:33
Laboratory Results
04/15/25
07:54
pH Cancelled
pCO2 Cancelled
pO2 Cancelled
HCO3 Cancelled
O2 Delivery Level Cancelled
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
[2025-04-15 08:41] LABS: Venous Blood Gas B.E. -9.2 mmol/L (-4 to +4); Venous Blood Gas O2 Sat % 99.9 %
[2025-04-15] MEDS: SODIUM BICARBONATE 1150 MEQ IV ×2 (09:35→21:08)
[2025-04-15] MEDS: PROTONIX 40 MG PO ×2 (12:38→21:14)
[2025-04-15] MEDS: HEPARIN 5000 UNITS SC ×2 (12:38→21:14)
--- NOTE | 2025-04-15 13:03 | PTCARENOTE ---
Macias catheter removed at this time. Pt asking to void, placed on bedpan, no urine output at this time. Pt repositioned and linens changed. Per Psych, pt will have 303 conference tomorrow. Pt updated by CM. Safe environment maintained with 1:1 and
booking police officer at bedside, b/l wrist restraints in place.
--- NOTE | 2025-04-15 14:15 | CM ---
Copies of 302 and 303 securely emailed to [email or web address] for 303 hearing.
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
--- NOTE | 2025-04-15 16:12 | CM ---
Addendum entered by Juliocesar Miller 04/15/25 16:28:
Patients parents both recently passed. [facility] service is in near future.
Original Note:
Dr. Schneider evaluated patient and recommended petitioning for a 303 hearing. Patient notified and aware of her rights. Pertinent documents forwarded to [email or web address] and [email or web address] by CM hospitality team member. This CM called and left
message at [phone] to confirm receipt of documents. Awaiting return call. Hearing has been scheduled for 04/16/25 @ 11:00am. Dr. Schneider and patient notified. sustainability officer remains in room. Discharge POC: TBD.
[2025-04-15] MEDS: APRESOLINE 10 MG IV (17:40)
--- NOTE | 2025-04-15 19:00 | PTCARENOTE ---
Rec`d pt a 1899 AAOx3. pt very talkative. assessment as documented. 1-1 continued with RN and police department. restrained. uses bedpan. PIVS flushed and patent. safe environment maintained.
[2025-04-16] VITALS (9 sets, daily range): BP systolic 116–130; BP diastolic 74–105; BMI 32.4
[2025-04-16 04:33] LABS: Hematocrit 33.0 % (37.0-47.0); Hemoglobin 11.8 g/dL (12.0-16.0); Mean Corp Hgb Conc. 35.8 g/dL (33.0-37.0); Mean Corpuscular Volume 93.5 fL (81.0-99.0); Nucleated Red Blood Cells % 0 %; Platelet Count 245 10^3/uL (130-400); Red Cell Dist. Width 12.8 % (11.5-14.5)
[2025-04-16 05:34] LABS: Blood Urea Nitrogen 24 mg/dl (7-17); Calcium 9.2 mg/dl (8.4-10.2); Carbon Dioxide 25 mmol/L (22-30); Chloride 111 mmol/L (98-107); Estimated Creatinine Clearance 47 ml/min; Glucose 88 mg/dl (70-99); Potassium 3.3 mmol/L (3.5-5.1); Sodium 140 mmol/L (135-145); eGFR 50.10
[2025-04-16] MEDS: KCL 40 MEQ PO (06:29)
[2025-04-16] MEDS: KLONOPIN 1 MG PO ×2 (08:07→15:20)
[2025-04-16] MEDS: PROTONIX 40 MG PO (08:07)
[2025-04-16] MEDS: HEPARIN 5000 UNITS SC (08:07)
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
[2025-04-16] MEDS: SODIUM BICARBONATE IV (08:59)
--- NOTE | 2025-04-16 09:06 | PTCARENOTE ---
pt awake and alert , she is calm and cooperative , she is aware why she is in hospital and states she is remorseful with her actions prior to hospitalization , she states she feels like she is in a better mental place now and has no feelings of self
harm to herself or anyone else, her restraints were released , she was able to ambulated to the bathroom , she is now off of her IVF , her bicarb is now at 25 , potassium 3.3 she has received K supplement , she is now written for telemetry status ,
she continues with a 1:1 status of care for safety , she is appropriately conversing with staff
--- NOTE | 2025-04-16 12:46 | CM ---
Court order for 303 placed in envelope on front of chart.
[2025-04-16] MEDS: CYMBALTA DELAYED RELEASE 60 MG PO (13:36)
[2025-04-16] MEDS: LAMICTAL 100 MG PO (13:36)
--- NOTE | 2025-04-16 14:29 | W.DCSUMMARY ---
Discharge Summary
Discharge Data
Date of Admission: 04/14/25
Date of Discharge: 04/16/25
Total time spent discharging patient (in min): 37
-
Pending Results: No
Hospital Course
Patient 49 years old female has history of bipolar, fibromyalgia, ADHD, asthma, possible Erler's Danlos, came into the hospital with altered mental status after an overdose of ibuprofen and Seroquel. Patient was admitted to ICU and she was given
aggressive IV fluid hydration placed on PPI. Quality Control Checker consulted. Patient also had some suicidal attempts and some reportedly homicidal attempts so psychiatry was consulted and she was in custody with police. Patient also had some KENYETTA and some
metabolic acidosis and she was treated with bicarb infusion and she improved. Her metabolic encephalopathy improved. She had around 4600 mg of ibuprofen and 25 to 30 tablets of 100 mg of extended release of Seroquel. Urine toxicology was positive
for TCA, benzo, and marijuana. Patient did well in terms of her mentation and her metabolic abnormalities improved as well as her KENYETTA. Electrolytes were replaced. Patient feels back to her baseline. Some of her medications have been restarted by
psychiatry at a lower dose with a goal of uptitrating as outpatient. She has been cleared medically but psychiatry has discussed with patient and she was committed for psychiatry facility but since she is in custody the police can take her and can
provide safety from mental health standpoint at the [facility]. I discussed with psychiatry and he is in agreement with patient be discharged to [facility] today. Patient is medically clear for incarceration.
Discharge duration: 37 minutes
Discharge Plan
-
Patient Disposition: Penitentiary
Discharge Diagnosis/Procedures: Suicidal attempt with overdose ingestion of ibuprofen and Seroquel. Acute kidney injury. Metabolic acidosis.
Diet: Regular
Activity: As tolerated
Blood Work: Please PCP to order CBC, BMP within 1 to 2 weeks or when able
Referrals:
Primary care provider [Other] - in one to two weeks
UNKNOWN - PT NOT,INTERVIEWE [Family Provider]
Prescriptions:
New
omeprazole 20 mg capsule,delayed release(DR/EC)
20 mg PO DAILY Qty: 30 0RF
Continued
Benadryl
50 mg PO PRN PRN (Reason: allergies)
Albuterol
2 puff inhalation BID
clonazepam 1 MG tablet
1 mg PO TID Qty: 42 0RF
levocetirizine [Xyzal] 5 mg Tablet
5 mg PO DAILY
budesonide-formoterol [Breyna] 160-4.5 mcg/actuation HFA aerosol inhaler
2 puff inhalation BID Qty: 10.2 0RF
ipratropium-albuterol 0.5 mg-3 mg(2.5 mg base)/3 mL solution for nebulization
3 ml inhalation R QID PRN (Reason: sob)
bupropion HCl 100 mg Tablet Sustained-Release 12 Hr
100 mg PO DAILY
duloxetine 60 mg Capsule,Delayed Release(Dr/Ec)
120 mg PO DAILY
Changed
lamotrigine 150 mg Tablet
100 mg PO DAILY Qty: 0 0RF
quetiapine 400 mg Tablet
200 mg PO HS Qty: 0 0RF
Discharge Orders:
Discharge Patient (As Directed); Ordered 04/16/25
Ordered By: Ac Malik
Discharge Date and Time
Discharge Date/Time: 04/16/25 15:25
Print Language: YORUBA
--- NOTE | 2025-04-16 14:29 | W.PN.UPDATE ---
Update Note
Progress Note Update
Patient is medically clear but she is not cleared from psychiatry standpoint and she committed for inpatient psychiatry care. Nevertheless, I discussed with psychiatry and the assisted officers are able to take her into their custody and keep her on
one-to-one for safety reasons of mental health.
Therefore patient is medically clear for incarceration. See details above.
--- NOTE | 2025-04-16 15:26 | PTCARENOTE ---
pt is DC from a medical standpoint , the patient is DC to incarceration with 1:1 care at the shelter , IVs removed and patient was escorted by police and security staff
--- NOTE | 2025-04-16 16:03 | CM ---
303 mental health hearing occurred today and the Court certified extended treatment for unspecified bipolar disease and per agreement of the stipulations of assistant corporation counsel and the Respondent. Patient is to receive inpatient treatment for a period not to
exceed 20 days and treatment may be transferred to another approved facility.
[facility] Police have arranged for patient to be discharged for criminal arraignment and then incarceration in [facility] with arrangements for ongoing psychiatric services to satisfy the Court's Order. Patient was escorted off unit by police.
Wyatt notified.
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
== END 2025-04-16 15:25 | DRG 917 ==
LOC: ICU 02:06
PROVIDERS: Internal Medicine; Student in an Organized Health Care Education/Training Program; ADMITTING PHYSICIAN Hospitalist; ATTENDING PHYSICIAN Hospitalist; CONSULT PHYSICIAN Internal Medicine Critical Care Medicine; EMERGENCY PHYSICIAN Student in an Organized Health Care Education/Training Program
DX: T39.312A Poisoning by propionic acid derivatives, intentional self-harm, initial encounter (principal); G92.8 Other toxic encephalopathy; Q79.60 Ehlers-Danlos syndrome, unspecified; N17.9 Acute kidney failure, unspecified; E87.20 Acidosis, unspecified; R42 Dizziness and giddiness; E66.9 Obesity, unspecified; F43.23 Adjustment disorder with mixed anxiety and depressed mood; R47.81 Slurred speech; F17.200 Nicotine dependence, unspecified, uncomplicated; F31.9 Bipolar disorder, unspecified; G43.909 Migraine, unspecified, not intractable, without status migrainosus; J45.909 Unspecified asthma, uncomplicated; M79.7 Fibromyalgia; M54.2 Cervicalgia; M54.9 Dorsalgia, unspecified; R45.6 Violent behavior; F41.9 Anxiety disorder, unspecified; R45.850 Homicidal ideations; D72.10 Eosinophilia, unspecified; R73.9 Hyperglycemia, unspecified; R00.0 Tachycardia, unspecified; R94.31 Abnormal electrocardiogram [ECG] [EKG]; F90.9 Attention-deficit hyperactivity disorder, unspecified type; F12.90 Cannabis use, unspecified, uncomplicated; E87.6 Hypokalemia; T43.592A Poisoning by other antipsychotics and neuroleptics, intentional self-harm, initial encounter; Y92.009 Unspecified place in unspecified non-institutional (private) residence as the place of occurrence of the external cause; Z68.32 Body mass index [BMI] 32.0-32.9, adult; Z65.3 Problems related to other legal circumstances; Z63.4 Disappearance and death of family member; Z91.410 Personal history of adult physical and sexual abuse; Z63.0 Problems in relationship with spouse or partner; Z98.51 Tubal ligation status; Z88.1 Allergy status to other antibiotic agents; Z88.8 Allergy status to other drugs, medicaments and biological substances; Z90.710 Acquired absence of both cervix and uterus
CPT/HCPCS: 51702; 71045; 80048; 80053; 80143; 80179; 80306; 80307; 82077; 82248; 82805; 82962; 83735; 85025; 85027; 85730; 93005; 96361; 96365; 96366; 96375; 99291